=== PATIENT | male | born 1995 | race Caucasian/White ===

== ENCOUNTER 2018-07-18 12:05 | Observation (INO) | payer BC ==
--- NOTE | 2018-07-18 13:08 | EDPHY ---
HPI/HX/ROS/PE/MDM Narrative: CHIEF COMPLAINT: RLQ pain HPI: The patient is a 23 y/o male arriving from urgent care for evaluation of RLQ abdominal pain worsening since last night. He reports a prior history of episodic abdominal pain over the last 3 years that has slowly worsened in severity. However, last night he developed a distinctly different abdominal pain that began in his periumbilical region and became progressively more severe before migrating to his RLQ. Pain is aggravated by palpation and associated with multiple episodes of vomiting. He is unable to keep water down and has a reduced appetite. He denies fever, dysuria, diarrhea, recent illness, or recent trauma. No prior history of abdominal surgeries. His last PO intake was this morning around 10:00, about 3 hours ago, and consisted of banana and bread that he promptly vomited back up. REVIEW OF SYSTEMS: Aside from elements discussed in the HPI, a comprehensive 10-point review of systems was reviewed and is negative. 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 From [place]. Single. PHYSICAL EXAM: General:Patient is alert, in no acute distress. ENT:Eyes are normal to inspection. ENT inspection normal. Neck: Normal inspection. Full range of motion. Respiratory:No respiratory distress. Breath sounds normal bilaterally. Cardiovascular: Regular rate and rhythm. Strong peripheral pulses. Normal cap refill. Abdomen:The abdomen has RLQ tenderness to palpation. There are no peritoneal signs. Back: Normal to inspection. No tenderness to palpation. Skin: Normal color. No rash. Warm and dry. Extremities: Normal appearance. Full range of motion. Neuro: Oriented x3. Normal motor function. Normal sensory function. ED Course: This is a healthy 23 y/o male who presents with a 1-day history of abdominal pain now localized to his RLQ and associated with vomiting and reduced appetite. He has moderate RLQ tenderness on exam. Presentation is likely indicative of appendicitis. Plan for IV, labs, abdominal CT. CT shows acute appendicitis. 1403: Consulted with Dr. Moreland, surgeon. He will assess patient in the ED. - Data Points Imaging: Discussed imaging studies w/ call center nurse Radiologist, I viewed and interpreted images myself Laboratory Results: Laboratory Results 07/18/18 13:10 07/18/18 07/18/18 13:17 13:10 WBC 12.51 10^3/uL H 10^3/uL (3.80-9.50) RBC 5.28 10^6/uL 10^6/uL (4.40-6.38) Hgb 15.3 g/dL g/dL (13.7-17.5) POC Hgb 15.6 gm/dL gm/dL (13.7-17.5) Hct 44.1 % % (40.0-51.0) POC Hct 46 % % (40-51) MCV 83.5 fL fL (81.5-99.8) MCH 29.0 pg pg (27.9-34.1) MCHC 34.7 g/dL g/dL (32.4-36.7) RDW 12.9 % % (11.5-15.2) Plt Count 257 10^3/uL 10^3/uL (150-400) MPV 8.7 fL fL (8.7-11.7) Neut % (Auto) 80.2 % H % (39.3-74.2) Lymph % (Auto) 13.0 % L % (15.0-45.0) Ferry % (Auto) 6.3 % % (4.5-13.0) Eos % (Auto) 0.1 % L % (0.6-7.6) Baso % (Auto) 0.2 % L % (0.3-1.7) Nucleat RBC Rel Count 0.0 % % (0.0-0.2) Absolute Neuts (auto) 10.04 10^3/uL H 10^3/uL (1.70-6.50) Absolute Lymphs (auto) 1.63 10^3/uL 10^3/uL (1.00-3.00) Absolute Monos (auto) 0.79 10^3/uL 10^3/uL (0.30-0.80) Absolute Eos (auto) 0.01 10^3/uL L 10^3/uL (0.03-0.40) Absolute Basos (auto) 0.02 10^3/uL 10^3/uL (0.02-0.10) Absolute Nucleated RBC 0.00 10^3/uL 10^3/uL (0-0.01) Immature Gran % 0.2 % % (0.0-1.1) Immature Gran # 0.02 10^3/uL 10^3/uL (0.00-0.10) POC Sodium 140 mEq/L mEq/L (135-145) POC Potassium 3.5 mEq/L mEq/L (3.3-5.0) POC Chloride 99 mEq/L mEq/L (97-110) POC Total CO2 25 mEq/L mEq/L (22-31) POC BUN 13 mg/dL mg/dL (7-23) POC Creatinine 0.8 mg/dL mg/dL (0.7-1.3) POC Glucose 112 mg/dL H mg/dL (70-100) Point of Care Test Results: Chemistry 07/18/18 13:17 POC Sodium 140 mEq/L mEq/L (135-145) POC Potassium 3.5 mEq/L mEq/L (3.3-5.0) POC Chloride 99 mEq/L mEq/L (97-110) POC Total CO2 25 mEq/L mEq/L (22-31) POC BUN 13 mg/dL mg/dL (7-23) POC Creatinine 0.8 mg/dL mg/dL (0.7-1.3) POC Glucose 112 mg/dL H mg/dL (70-100) ISTAT H&H 07/18/18 13:17 POC Hgb 15.6 gm/dL gm/dL (13.7-17.5) POC Hct 46 % % (40-51) General Time Seen by Provider: 07/18/18 12:53 Initial Vital Signs: Initial Vital Signs Temperature (C) 36.3 C 07/18/18 12:17 Heart Rate 68 07/18/18 12:17 Respiratory Rate 18 07/18/18 12:17 Blood Pressure 134/72 H 07/18/18 12:17 O2 Sat (%) 99 07/18/18 12:17 O2 Delivery Mode Room Air Allergies/Adverse Reactions: No Known Allergies Allergy (Unverified 07/18/18 12:21) Home Medications: Medication Instructions Recorded NK [No Known Home Meds] 07/18/18 Departure - Departure Disposition: [facility] Inpatient Acute Clinical Impression: Acute appendicitis Qualifiers: Acute appendicitis type: with localized peritonitis Appendicitis gangrene presence: without gangrene Appendicitis perforation presence: without perforation Appendicitis abscess presence: without abscess Qualified Code(s): K35.30 - Acute appendicitis with localized peritonitis, without perforation or gangrene Condition: Fair Referrals: NONE *PRIMARY CARE P,. [Primary Care Provider] - As per Instructions Report Scribed for: Nam Plaza Report Scribed by: Lashaun Delgado Date of Report: 07/18/18 Time of Report: 12:56 Physician Review and Approval Statement: Portions of this note were transcribed by an ED scribe. I personally performed the history, physical exam, and medical decision making; and confirm the accuracy of the information in the transcribed note.
[2018-07-18 13:19] LABS: PLATELET COUNT 257 10^3/uL (150-400)
[2018-07-18] MEDS ORDERED: IOHEXOL 300 mgI/ML (OMNIPAQUE) 150 ML BTL IV ONE (13:30)
[2018-07-18] MEDS ORDERED: NS 1,000 ML IV ONE (14:04)
[2018-07-18] MEDS ORDERED: ceFAZolin 1 GM/5 ML SYR ONE (14:52)
[2018-07-18] MEDS ORDERED: HEPARIN 5,000 UNIT/0.5 ML INJ ONE (14:52)
[2018-07-18] MEDS ORDERED: fentaNYL 250 MCG/5 ML INJ ONE (14:56)
[2018-07-18] MEDS ORDERED: PROPOFOL/EMULSION 500 MG/50 ML BOTTLE IV ONE (14:56)
[2018-07-18] MEDS ORDERED: KETOROLAC 30 MG/1 ML SDV ONE (14:57)
[2018-07-18] MEDS ORDERED: DEXAMETHASONE 4 MG/ML VIAL ONE (14:57)
[2018-07-18] MEDS ORDERED: ROCURONIUM 50 MG/5 ML VIAL ONE (14:57)
[2018-07-18] MEDS ORDERED: ONDANSETRON 4 MG/2 ML VIAL ONE (14:57)
[2018-07-18] MEDS ORDERED: LIDOCAINE 2% 5 ML SDV ONE (14:57)
[2018-07-18] MEDS ORDERED: SUCCINYLCHOLINE CHLORIDE 200 MG/10 ML SYR IVP ONE (15:01)
[2018-07-18] MEDS ORDERED: MIDAZOLAM 2 MG/2 ML VIAL ONE (15:28)
[2018-07-18] MEDS ORDERED: CEFAZOLIN 2 GM/DEXTROSE/100 ML BAG IV ONE (15:39)
--- NOTE | 2018-07-18 15:41 | PDANEPAE ---
ANE History of Present Illness acute appendicitis ANE Past Medical History - Cardiovascular History Hx Hypertension: No Hx Arrhythmias: No Hx Chest Pain: No Hx Coronary Artery / Peripheral Vascular Disease: No Hx CHF / Valvular Disease: No Hx Palpitations: No - Pulmonary History Hx COPD: No Hx Asthma/Reactive Airway Disease: No Hx Recent Upper Respiratory Infection: No Hx Oxygen in Use at Home: No Hx Sleep Apnea: No - Endocrine History Hx Diabetes: No Hypothyroid: No Hyperthyroid: No - Renal History Hx Renal Disorders: No - Liver History Hx Hepatic Disorders: No - Neurological & Psychiatric Hx Hx Neurological and Psychiatric Disorders: No - Cancer History Hx Cancer: No - Congenital Disorder History Hx Congenital Disorders: No - GI History GERD: no Hx Gastrointestinal Disorders: Yes Gastrointestinal History Comment: acute appy - Chronic Pain History Chronic Pain: No - Surgical History Prior Surgeries: wisdom teeth ANE Review of Systems Review of systems is: negative Review of Systems: - Exercise capacity METS (RN): 4 METS ANE Patient History - Allergies Allergies/Adverse Reactions: No Known Allergies Allergy (Unverified 07/18/18 12:21) - Home Medications Home medications: home medication list seen and reviewed Home Medications: NK [No Known Home Meds] 07/18/18 [Last Taken Unknown] - NPO status NPO Since - Liquids (Date): 07/18/18 NPO Since - Liquids (Time): 08:00 NPO Since - Solids (Date): 07/18/18 NPO Since - Solids (Time): 08:00 - Anes Hx Anes Hx: no prior problems - Smoking Hx Smoking Status: Never smoked Marijuana use: No - Alcohol Use Alcohol Use: None - Family Anes Hx Family Anes Hx: none ANE Labs/Vital Signs - Labs Result Diagrams: 07/18/18 13:10 - Vital Signs Blood Pressure: 142/70 Heart Rate: 74 Respiratory Rate: 16 O2 Sat (%): 96 Weight: 76.204 kg ANE Physical Exam - Airway Neck exam: FROM Mallampati Score: Class 2 Mouth exam: normal dental/mouth exam - Pulmonary Pulmonary: no respiratory distress, clear to auscultation - Cardiovascular Cardiovascular: regular rate and rhythym, no murmur, rub, or gallop - ASA Status ASA Status: I, E ANE Anesthesia Plan Anesthesia Plan: general endotracheal anesthesia
[2018-07-18] MEDS ORDERED: SUGAMMADEX SODIUM 200 MG/2 ML VIAL IVP ONE (16:23)
--- NOTE | 2018-07-18 16:24 | GHP ---
[f rep st] PREOP HISTORY AND PHYSICAL DATE OF ADMISSION: 07/18/2018 ADMITTING DIAGNOSIS: Acute appendicitis by CT. 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 For the first episode, the pain was at a level of 4 to 5 and laste d 3 to 5 hours. Over the last 3 years, the pain has become worse and has lasted a longer time frame. He did have an evaluation in [place] with an ultrasound which was negative. He was treated with ant ispasmodic for probable inflammatory bowel disease, which was not helpful. Yesterday, he had an onse t of a diffuse abdominal pain at 6 p.m. He then ate dinner, by 10 o'clock, the pain became more inte nse, and at 3 a.m. moved to the right lower quadrant. This is the first time of all his episodes, th e pain had moved to the right lower quadrant. He did vomit 4 times overnight, once on awakening, and once after having breakfast which consisted of a banana and toast. He presented to the ER for evaluation. CAT scan is consistent with appendicitis with the appendix in the right gutter. There is no history of recent upper respiratory tract infection or diarrhea. He has not traveled outside the [place] in the last 6 months. He did have antibiotics for wisdom tooth extraction in June of this year. He has had no prior surgeries. Specifically, there is no family history of inflammatory bowel disease. PAST MEDICAL HISTORY: He does not smoke. He has not had any alcohol in 2019. There is no history o f rheumatic fever, tuberculosis, hepatitis, or transfusions. ALLERGIES: He has no known drug allergies. MEDICATIONS: He is not taking any medications. PAST SURGICAL HISTORY: His only surgery has been the wisdom tooth extraction. REVIEW OF SYSTEMS: His eyes trouble him. He says there is no physical problem with his eyes and no visual problem with his eyes, but this has been a lifelong process for him. When he is aware of some thing in his peripheral vision, it is quite "painful" for him. He has a metal permanent retainer. R eview of systems is quite negative. There are no limits on his activities and no history of steroid use in the last 6 months. 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 FAMILY HISTORY: His mother is 59 years old, alive and well. His father is 63 years old, alive and w ell. He is an only child. There are no bleeding disorders, clotting disorders, or difficulty with a nesthesia. PHYSICAL EXAMINATION: VITAL SIGNS: Blood pressure is 142/70, at 74, respirations are 16. Room air saturations 96%. GENERAL: He is awake and alert. He is pleasant and interactive. HEAD: Skull is normocephalic and atraumatic. NEUROLOGIC: No focal lateralizing neurologic findings. He is oriente d to person, place, and time. NECK: There is no thyroid enlargement. LYMPHATICS: There are no cer vical, supraclavicular, axillary, or inguinal lymphadenopathy. BACK: Unremarkable. LUNGS: Clear t o auscultation. CARDIAC: S1, S2 were normal, with a normal split of S2, without murmurs, rubs, or g allops. EXTREMITIES: Unremarkable. ABDOMEN: Psoas and obturator signs are negative. I do not det ect any bowel sounds at this point. He is tender with cough over McBurney point at a 6. To palpatio n, left upper quadrant is 1, left midabdomen is 1, left lower quadrant is 1, epigastrium is 1, perium bilical area is 1, suprapubic area is 2, right upper quadrant is 1, right mid-abdomen is 5, right low er quadrant is 2. LABS: White blood cell count is 12.5, with 80% neutrophils. Hematocrit is 44, platelets are 257. S odium is 140, potassium is 3.5, creatinine is 0.8, BUN is 13, glucose is 112. IMPRESSION: I feel this patient does have acute appendicitis. We have talked about an antibiotic ap proach versus surgical approach. With his chronic abdominal pain which may actually represent a rela psing subacute appendicitis, I feel surgical intervention does make the most sense. This is discusse d with the patient, his mother, and his uncle, and they all agree to proceed as outlined. /[id number]/MODL
[2018-07-18] MEDS ORDERED: fentaNYL 100 MCG/2 ML INJ IVP PRN (16:31)
[2018-07-18] MEDS ORDERED: LR 500 ML IV PRN (16:31)
[2018-07-18] MEDS ORDERED: PROMETHAZINE HCL 25 MG/ML INJ IVP PRN (16:31)
[2018-07-18] MEDS ORDERED: MEPERIDINE 25 MG/0.5 ML AMP IVP PRN (16:31)
[2018-07-18] MEDS ORDERED: NALOXONE HCL 0.4 MG/ML INJ IVP PRN (16:31)
--- NOTE | 2018-07-18 16:31 | POSTANESTH ---
Post Anesthetic Evaluation Cardiovascular Status: Normal, Stable Respiratory Status: Normal, Stable Level of Consciousness/Mental Status: Can Participate in Eval Pain Control: Adequate, Prn Tx Ordered Nausea/Vomiting Control: Adequate, Prn Tx Ordered Complications Possibly Related to Anesthesia: None Noted
[2018-07-18] MEDS ORDERED: HYDROmorphONE/DILAUDID 1 MG/ML INJ IVP PRN (16:44)
--- NOTE | 2018-07-18 16:57 | POSTOPPROG ---
Post Op Note Date of Operation: 07/18/18 Surgeon: Joshua Moreland Anesthesia: GET(General Endotracheal) Pre-op Diagnosis: acute appendicitis Post-op Diagnosis: acute unruptured appendicitis, mesenteric adenitis, RIH Indication: acute appendicitis Procedure: laparoscopic appendectomy Findings: acute unruptured appendicitis, mesenteric adenitis, RIH Inf/Abcess present in the surg proc area at time of surgery?: No EBL: Minimal Total fluids administered: 500 Complications: none Specimen(s): appendix
[2018-07-18] MEDS ORDERED: LR 1,000 ML IV SCH (17:00)
[2018-07-18] MEDS ORDERED: fentaNYL 100 MCG/2 ML INJ ONE (17:42)
[2018-07-18] MEDS: KETOROLAC 15 MG/1 ML SDV IVP SCH ×2 (18:38→23:51)
[2018-07-18] MEDS: ACETAMINOPHEN 500 MG TAB PO SCH ×2 (19:01→23:51)
--- NOTE | 2018-07-19 05:06 | GOP ---
[f rep st] OPERATIVE REPORT DATE OF OPERATION: 07/18/2018 SURGEON: Joshua Moreland MD ANESTHESIA: General endotracheal. PREOPERATIVE DIAGNOSIS: Acute appendicitis. POSTOPERATIVE DIAGNOSIS: Acute unruptured appendicitis with mesenteric adenitis and right inguinal h ernia (small). PROCEDURE PERFORMED: Laparoscopic appendectomy. FINDINGS: Acute unruptured appendicitis with mesenteric adenitis and small right indirect inguinal h ernia. SPECIMENS: Appendix. ESTIMATED BLOOD LOSS: Scant. INDICATIONS: Acute appendicitis. DESCRIPTION OF PROCEDURE: The patient was placed on the operating table in the supine position. Aft er induction of adequate general endotracheal anesthesia the abdomen was carefully clipped, prepped, and draped. Note is made he had voided just prior to entering the operating room. A surgical time-out was carried out and agreed to by all members of the operative team. An oblique left lower quadrant 5 mm skin incision was marked as is a transverse 5 mm suprapubic incis ion. A curvilinear incision was made in the umbilical fold. All 3 incisions were now cre ated sharply and deepened with Bovie electrocautery. Dissection was carried down to expose the anterior rectus sheath bilaterally in the infraumbilical sp liang. The rectus sheath was elevated between Allis clamps. The fascia was divided in the midline. A suture of #0 PDS was placed. The peritoneum was entered. An 11-12 mm disposable León trocar was positioned and intra-abdominal insufflation was carried out to 15 mmHg. He is placed in a 30-degree Trendelenburg position rotated 5 degrees to the left. A 5 mm port was placed through the oblique lef t lower quadrant incision, and another 5 mm port was placed through the transverse suprapubic incisio n. There is a minimal amount of a translucent yellow fluid in the pelvis. On inspection, there is a rig ht indirect inguinal hernia (small). The appendix was identified in the right pericolic space. The mesoappendix was carefully elevated and divided with the Harmonic Scalpel down to its base. The appe ndix was transected with a cuff of cecum using a 35 mm powered Endo-CLARENCE stapler. The specimen is rem elijah in an EndoCatch bag via the umbilical port. The small bowel was now run for a distance of approximately 4 feet. Mesenteric adenitis is identifie d. There is no evidence of Meckel's diverticulum. Irrigation with heparin and Ancef-containing irrigant was carried out. Photographic documentation hernandez s been obtained. The ports were removed under direct vision. The patient is now returned to the supine position. The midline fascial defect was closed with 1 int errupted inverted simple suture of #0 PDS. The pursestring is now tied. The subcutaneous tissue is well irrigated. There is no evidence of bleeding. Inverted simple sutures of #4-0 Vicryl placed at all skin incisions. Mastisol and Steri-Strips were placed. Band-Aids were positioned. The patient was transferred to recovery in stable and satisfactory condition. FLUIDS ADMINISTERED: 500 cc. DRAINS: None placed. /[id number]/MODL
[2018-07-19] MEDS: KETOROLAC 15 MG/1 ML SDV IVP SCH ×2 (05:10→11:16)
[2018-07-19] MEDS: ACETAMINOPHEN 500 MG TAB PO SCH ×2 (08:19→15:36)
[2018-07-19 11:32] VITALS: BP 109/54
--- NOTE | 2018-07-19 13:05 | SOAPPROG ---
SOAP Progress Note Assessment/Plan: 07/19/18 13:02 POD#1 Assessment: doinfg well, moving bowels, eating, pain controlled, incisions clean and dry Plan: discharge Subjective: no complaints, multiple questions answered Objective: Vital Signs Temp Pulse Resp BP Pulse Ox 36.3 C 54 L 18 109/54 L 96 07/19/18 11:29 07/19/18 11:29 07/19/18 11:29 07/19/18 11:29 07/19/18 11:29 07/18/18 07/19/18 07/20/18 05:59 05:59 05:59 Intake Total 920 Output Total 5 Balance 915 - Time Spent With Patient Time Spent With Patient: 15 - Pending Discharge Pending Discharge Within 24 Hours: Yes Pending Discharge Date: 07/20/18 Pending Discharge Time: 11:00 Physical Exam - Physical Exam General Appearance: no apparent distress Respiratory: lungs clear, normal breath sounds Cardiac/Chest: regular rate, rhythm Abdomen: normal bowel sounds, non-tender, soft, other (incision clean and dry) Male Genitalia: deferred Rectal: deferred Back: Normal inspection Skin: normal color, warm/dry Neuro/Psych: no motor/sensory deficits, alert, normal mood/affect, oriented x 3 ICD10 Worksheet Patient Problems: Problems Problem Status Onset Acute appendicitis Acute
--- NOTE | 2018-07-19 16:01 | ASDISCHSUM ---
Discharge Information Plan Status:Home with No Needs Medically Cleared to Leave: Discharge Date:07/19/2018 03:55 PM CM D/C Disposition:Home, Routine, Self-Care ADT D/C Disposition:Home, Routine, Self-Care Projected Discharge Date:07/19/2018 12:00 AM Transportation at D/C:Family Discharge Delay Reason: Follow-Up Date:07/19/2018 12:00 AM Discharge Slot: Final Diagnosis: Placement Information Patient Contact Information Contact Name:KENDRICK Relationship:Mother Address:[address] Work Phone: [facility] Phone: [facility]/Zip Code:[place] [address] Email: Financial Information Financial Class:BCOP Primary Plan Desc: OUT OF [facility] Primary Plan Number:[id number] Secondary Plan Desc: Secondary Plan Number: Assessment Information BC CM Progress Note CM Note CM Note Notes: Pt discharged independently with his dad post appendectomy. Family to transport and dad is able to help with follow-up. No CM needs identified Date Signed: 07/19/2018 03:59 PM Electronically Signed By:INDU Presley Case Management Discharge Plan Note Case Management Discharge Discharge Order Complete? Answers: Yes Patient to Obtain Answers: via Family Medications Transportation Arranged Answers: Family/Friends Discharge Comments Notes: Discharged independently with family. Date Signed: 07/19/2018 04:00 PM Electronically Signed By:INDU Presley LACE LACE Length of stay for Answers: Less than 1 day current admission Acuity / Level of Answers: No Care: Did the patient have an inpatient admission? Comorbidities - select Answers: Other Notes: apendicitis all that apply # of Emergency department Answers: 0 visits in the last 6 months Score: 1 Date Signed: 07/19/2018 04:01 PM Electronically Signed By:INDU Presley Intervention Information
--- NOTE | 2018-07-19 21:22 | GDS ---
[f rep st] DISCHARGE SUMMARY PREOPERATIVE DIAGNOSES: 1. Chronic recurring abdominal pain. 2. Acute appendicitis. POSTOPERATIVE DIAGNOSES: 1. Acute appendicitis. 2. Mesenteric adenitis. 3. Small right indirect inguinal hernia. NAME OF PROCEDURE: Laparoscopic appendectomy. CONDITION ON DISCHARGE: Good. DISPOSITION: Home (formerly [facility], later [facility]). DIETARY RECOMMENDATIONS: No restrictions on his diet. A regular texture is felt to be adequate. DISCHARGE MEDICATIONS: He will take Tylenol 1000 mg every 8 hours and supplement that with Toradol 1 0 mg tablets every 6 hours. He will use Dilaudid 2-4 mg every 4 hours as needed for severe pain, and will also contact Dr. Cartagena' office. ACTIVITY: For the next 3 weeks is restricted. He is to lift less than 10 pound, shower only, keep h is Steri-Strips in place. He is to avoid constipating foods such as bananas, rice, applesauce, and c heese. He is to watch for signs of infection, Superficial: Redness warmth swelling and tenderness. Deep: Loss of appetite, fevers, chills, abdominal pain, and general malaise. FOLLOWUP: He will follow up with Dr. Duarte Cartagena' office in 10-14 days. HOSPITAL COURSE: The patient has been taken to the operating room, where the above-mentioned surgery was carried out without difficulty. He is doing well postoperative day #1. He is going to be dismi ssed this afternoon, as soon as his father arrives. /[id number]/MODL
== END 2018-07-19 15:55 | disposition home or self-care (01) ==
LOC: FSGY 15:34 → F3E 16:25
PROVIDERS: ADMIT Surgery; ATTEND Surgery
PROC: 0DTJ4ZZ Resection of Appendix, Percutaneous Endoscopic Approach (ICD-10-PCS; principal; 2018-07-18 15:00)
DX: K35.80 Unspecified acute appendicitis (principal); I88.0 Nonspecific mesenteric lymphadenitis; K40.90 Unilateral inguinal hernia, without obstruction or gangrene, not specified as recurrent; E86.9 Volume depletion, unspecified
CPT/HCPCS: 44970; 74177; G0378; 82435-PO; 82565-PO; 82947-PO; 84132-PO; 84295-PO; 84520-PO; 85014-ER; J0330; J0690; J0696; J1100; J1644; J1885; J2250; J2405; J2704; J3010; Q9967